=== PATIENT | male | born 1990 | race Caucasian/White ===

== ENCOUNTER 2018-08-04 21:07 | Emergency (ER) | payer SELFPAY ==
[~2018-08-04] VITALS: Ht 172.7 cm; Wt 83.9 kg
[~2018-08-04 21:07] MED LIST: AGM875T PO; HYDR-757 PO
--- OUTSIDE RECORDS SUMMARY | 2018-08-04 21:37 | XMS REPORT | Continuity of Care Document ---
Author Author [facility] Address Unknown Phone Unavailable Allergies Active Description Code Type Severity Reaction Onset Reported/Identified Relationship to Patient Clinical Status Yes NO KNOWN DRUG ALLERGIES [id number] Drug Allergy N/A N/A 08/26/2015 Medications There is no data. Problems Date Dx Coded Attending Type Code Diagnosis Diagnosed By 11/26/2007 CHANDNI ABERNATHY PHD 311 MO DEPRESSIVE DISORDER NOS 11/26/2007 CONNIE BREWER APRN 311 MO DEPRESSIVE DISORDER NOS 11/26/2007 CONNIE BREWER APRN 311 MO DEPRESSIVE DISORDER NOS 12/10/2007 CHANDNI ABERNATHY PHD 313.81 CD OPPOSITIONAL DEFIANT 12/10/2007 CONNIE BREWER APRN 313.81 CD OPPOSITIONAL DEFIANT 12/10/2007 CONNIE BREWER APRN 313.81 CD OPPOSITIONAL DEFIANT 09/11/2011 CHANDNI ABERNATHY PHD 300.02 AN GEN ANXIETY 09/11/2011 CONNIE BREWER APRN 300.02 AN GEN ANXIETY 09/11/2011 CONNIE BREWER APRN 300.02 AN GEN ANXIETY 01/13/2014 CONNIE BREWER APRN 296.90 MOOD DISORDER 01/13/2014 CONNIE BREWER APRN 296.90 MOOD DISORDER 08/11/2014 CONNIE BREWER APRN 523.31 AGGRESSIVE PERIODONTITIS LOCALIZED 08/26/2015 EUSEBIA BRAY MD D16.01 BENIGN NEOPLM OF SCAPULA AND LONG BONES OF RIGHT U 08/26/2015 EUSEBIA BRAY MD M25.512 PAIN IN LEFT SHOULDER 08/26/2015 EUSEBIA BRAY MD M25.551 PAIN IN RIGHT HIP 12/30/2015 GREY LESTER MD D16.01 BENIGN NEOPLM OF SCAPULA AND LONG BONES OF RIGHT U Procedures There is no data. Results There is no data. Encounters ACCT No. Visit Date/Time Discharge Status Pt. Type Provider Facility Loc./Unit Complaint [id number] 08/11/2014 09:21:00 08/11/2014 23:59:59 CLS Outpatient CONNIE BREWER APRN [facility] [id number] 01/13/2014 09:00:00 01/13/2014 23:59:59 CLS Outpatient CONNIE BREWER APRN [id number] 09/11/2011 13:49:00 09/11/2011 23:59:59 CLS Outpatient JOSEMANUEL BURNS, CHANDNI Medina 11/29/09 10/18/2017 08:37:22 10/18/2017 23:59:59 CLS Outpatient [id number] 12/30/2015 13:46:00 12/30/2015 23:59:00 DIS HECTOR LESTER MD, [facility] IC [id number] 08/26/2015 14:05:00 08/26/2015 15:53:00 DIS CELESTINO BRAY MD, [facility] ED [id number] 08/30/2015 07:44:23 08/30/2015 07:44:23 DIS Outpatient [id number] 08/26/2015 15:24:34 08/26/2015 15:24:34 DIS Outpatient [id number] 08/26/2015 15:24:31 08/26/2015 15:24:31 DIS Outpatient [id number] 08/26/2015 15:23:22 08/26/2015 15:23:22 DIS Outpatient [id number] 08/26/2015 14:04:00 08/26/2015 23:59:59 CLS [facility] ED [id number] 06/16/2013 17:48:00 06/16/2013 18:47:00 DIS Emergency
--- OUTSIDE RECORDS SUMMARY | 2018-08-04 21:37 | XMS REPORT | Continuity Of Care Document ---
Author Author [facility] Organization [facility] Address [address] [place] [address] Phone Care Team Providers Care Power Reactor Supervisor Name Role Phone ASA CLARK, EUSEBIA Batista AT NON STAFF, PROVIDER Unavailable Unavailable Results Results No results recorded. Allergies and Adverse Reactions Allergies and Adverse Reactions Patient Unit Number: [id number] Agent Type Reaction Severity Status NO KNOWN DRUG ALLERGIES Drug Allergy Unknown Unknown Active Problem List Problem List Visit/Account #[id number] (August 26, 2015 2:05pm - August 26, 2015 3:53pm) Acute Problems: Code/Condition Comments Documented Start Date Documented Resolved Date Code (s) Osteochondroma of humerus ICD10: D16.00 Osteochondroma of humerus ICD9: 213.4 Osteochondroma of humerus SNOMED: 25475652 Osteochondroma of humerus Plan of Care Plan Of Care Visit/Account #[id number] (August 26, 2015 2:05pm - August 26, 2015 3:53pm) Patient Instructions Followup with next week. Call office tomorrow for appointment Take pain medications as prescribed. Rest, ice to the area of pain and use shoulder sling for comfort. Return to the emergency room if symptoms worsens or has any concern. Vital Signs Vital Signs Visit/Account #[id number] (August 26, 2015 2:05pm - August 26, 2015 3:53pm) Sign First Result Last Result Code(s) Temperature in Fahrenheit Temperature (Fahrenheit): 98.8 [degF] On August 26, 2015 2:05pm Temperature (Fahrenheit): 98.1 [degF] On August 26, 2015 3:52pm 8310-5 Body Temperature Weight in Kilograms Weight (Kilograms): 93.2 kg On August 26, 2015 2:05pm 3141-9 Weight Measured 03415-6 Body weight measured in kilograms Functional Status Functional and Cognitive Status No Functional Status Data Medications Inpatient/Ordered Medications - Medications administered during hospital visit Visit/Account #[id number] (August 26, 2015 2:05pm - August 26, 2015 3:53pm) Medication Route Sig/Schedule Precondition/Indication Comments/Instructions Codes Solu-MEDROL INJ(MethylPREDNISolone SOD SUCC) 125 MG/2 ML INJECTION Dose: 2 ML INTRAMUSC NOW Methylprednisolone 62.5 MG/ML Injectable Solution [Solu-Medrol] (RxNorm): 132489 Solu-MEDROL INJ (MethylPREDNISolone SOD SUCC) NDC: 99561647058 TORADOL INJ(KETOROLAC TROMETHAMINE) 60 MG/2 ML VIAL Dose: 2 ML INTRAMUSC NOW 2 ML Ketorolac Tromethamine 30 MG/ML Injection (RxNorm): 5735754 TORADOL INJ (KETOROLAC TROMETHAMINE) NDC: 90072563820 Discharge Medications - Medications that patient should continue to take. Review with physician Visit/Account #[id number] (August 26, 2015 2:05pm - August 26, 2015 3:53pm) Medication Route Sig/Schedule Precondition/Indication Comments/Instructions Codes NORCO 5-325 TABLET(HYDROcodone BIT/ACETAMINOPHEN) 1 TAB TABLET Dose: 1 TAB ORAL EVERY 4 HOURS PAIN Rx Instructions: 1-2 TAB Acetaminophen 325 MG / Hydrocodone Bitartrate 5 MG Oral Tablet (RxNorm): 230423 NORCO 5-325 TABLET (HYDROcodone BIT/ACETAMINOPHEN) NDC: 97333981941 Flexeril(CYCLOBENZAPRINE HCL) 10 MG TAB Dose: 1 TAB ORAL TWICE A DAY SPASM Cyclobenzaprine hydrochloride 10 MG Oral Tablet (RxNorm): 621064 Flexeril (CYCLOBENZAPRINE HCL) NDC: 06055673581 History Of Encounters Encounters Visit/Account #[id number] (August 26, 2015 2:05pm - August 26, 2015 3:53pm) Account Status Physican Of Record Reason For Visit Visit Diagnosis Start Date/Time Stop Date/Time CELESTINO BRAY MD SHOULDER PAIN M25.512: PAIN IN LEFT SHOULDER ICD10 Aug 26, 2015 2:05pm Aug 26, 2015 3:53pm History of Procedures Procedure List No procedures recorded. Discharge Instructions Discharge Instructions Visit/Account #[id number] (August 26, 2015 2:05pm - August 26, 2015 3:53pm) DISCHARGE INSTRUCTIONS Physician Documentation Social History Social History No Social History Data. Immunizations Immunizations Patient Unit Number: [id number] Immunizations No immunizations recorded.
--- OUTSIDE RECORDS SUMMARY | 2018-08-04 21:37 | XMS REPORT ---
Author Author Migration, Doctor Organization [facility] Address Unknown Phone Unavailable Care Team Providers Care Negative Notcher Name Role Phone Migration, Doctor Unavailable Unavailable PROBLEMS Type Condition ICD9-CM Code PSB06-RX Code Onset Dates Condition Status SNOMED Code Problem Generalized anxiety disorder 300.02 Active 46874037 Problem Unspecified episodic mood disorder 296.90 Active [id number] ALLERGIES No Information ENCOUNTERS Encounter Location Date Diagnosis [facility] [id number] [place] [phone] Nov, Dental examination V72.2 [facility] [place] [id number] [place] [phone] September, [facility] [address], [place] [phone] September, Otitis externa of right ear 380.10 ; Mood disorder 296.90 and Restless leg 333.94 [facility] [place] [address] [place] [phone] September, Unspecified episodic mood disorder 296.90 [facility] [place] [id number] [place] [address] Aug, [facility] [place] [id number] [place] [address] Aug, [facility] [place] [id number] [place] [address] Jul, [facility] [place] [id number] [place] [address] Jul, [facility] [place] [id number] [place] [address] Jan, [facility] [address], [place] [phone] Jan, [facility] [place] [id number] [place] [phone] Dec, [facility] [place] [id number] [address] Dec, [facility] [place] [id number] [place] [address] Dec, [facility] [place] [id number] [place] [address] Nov, [facility] [place] [id number] [place] [address] Oct, [facility] [place] [id number] [place] [address] September, [facility] [place] [id number] [place] [address] Mar, [facility] [place] [id number] [place] [address] Feb, IMMUNIZATIONS No Known Immunizations SOCIAL HISTORY Never Assessed REASON FOR VISIT EMR-[facility] PLAN OF CARE VITAL SIGNS MEDICATIONS Medication Instructions Dosage Frequency Start Date End Date Duration Status trazodone 50 mg take 1 tablets by Oral route 1 time per day after meals Jul, Active RESULTS No Results PROCEDURES No Known procedures INSTRUCTIONS MEDICATIONS ADMINISTERED No Known Medications
--- OUTSIDE RECORDS SUMMARY | 2018-08-04 21:37 | XMS REPORT ---
Author Author [facility] Organization [employer] Address Unknown Phone Unavailable Care Team Providers Care Business Banking Representative Name Role Phone CHECO BOWEN CP Unavailable Allergies No Known Allergies Problems Problem Type Condition ICD-9 Code Onset Dates Condition Status Problem Unspecified episodic mood disorder 296.90 Active Assessment Dental examination V72.2 Active Problem Generalized anxiety disorder 300.02 Active Medications No Known Medications Procedures Procedure Coding System Code Date INTRAORL-PERIAPICAL 1 FILM 41263 CPT-4 D0220 November 25, 2014 BITEWING - SINGLE FILM CPT-4 D0270 November 25, 2014 LTD ORAL EVALUATION - PROBLEM FOCUS CPT-4 D0140 November 25, 2014 Results No Known Results Summary Purpose [employer] Submission
[2018-08-04] MEDS ORDERED: RX-MUPIROCIN (BACTROBAN) 2% OINT 22 GM TUBE TOP STA (22:10)
[2018-08-04] MEDS ORDERED: RX-TRIMETH/SULFA. 160-800 MG (BACTRIM DS) TAB PPK#2 PO STA (22:10)
[2018-08-04] MEDS ORDERED: TETANUS,DIPTH,PERTUSS P/F (BOOSTRIX) 0.5 ML VIAL IM ONE (22:15)
[2018-08-04] MEDS ORDERED: ACETAMINOPHEN 325 MG TABLET PO ONE (22:15)
[2018-08-04] MEDS ORDERED: SULF1TAB35 PO (22:33)
--- NOTE | 2018-08-04 22:33 | ED Lower Extremity ---
General Chief Complaint: Lower Extremity Stated Complaint: R FOOT POSS TOE INFECTION Nursing Triage Note: PT PRESENTS WITH AN AREA OF CONCERN ON THE RIGHT GREAT TOE THAT ONSET YESTERDAY WITH REDNESS AROUND A SCRATCH. AREA IS REDDISH PURPLE AND VISIBLY RAISED WITH SWELLING PRESENT TODAY. Nursing Sepsis Screen: Possible Sepsis Risk History of Present Illness Date Seen by Provider: Aug 04, 2018 Time Seen by Provider: 19:55 Initial Comments 28-year-old male reports sustaining multiple superficial lacerations to his right great toe approximately one week ago on tin. He is unsure of his last tetanus vaccine. He recently moved back to [place], [place], and does not have a healthcare provider. He denies history of MRSA. Reports purulent drainage from the right great toe. Onset: last week Pain/Injury Location: right 1st toe Method of Injury: incised Modifying Factors: Improves With Rest Allergies and Home Medications Allergies Coded Allergies: No Known Drug Allergies (Unverified Allergy, Mild, 11/23/08) Home Medications Amoxicillin/Clavulanate K 875 Mg Tab, 1 TAB PO BID Prescribed by: OLI SALINAS on 06/16/13 183 Hydrocodone Bit/Acetaminophen 1 Each Tablet, 1 EA PO Q6H PRN for MILD PAIN Prescribed by: OLI SALINAS on 06/16/13 183 Sulfamethoxazole/Trimethoprim 1 Each Tablet, 1 EACH PO BID Prescribed by: VERONIQUE SYLVESTER on 08/04/183 Patient Home Medication List Home Medication List Reviewed: Yes Review of Systems Constitutional: no symptoms reported, see HPI Skin: see HPI, other (abscess right great toe) All Other Systems Reviewed Negative Unless Noted: Yes Past Ondtctd-Aikqqa-Gbsfnh Hx Past Med/Social Hx: Reviewed Nursing Past Med/Soc Hx Patient Social History Recent Foreign Travel: No Contact w/Someone Who Travel: No Recent Infectious Disease Expo: No Past Medical History Reproductive Disorders: No Sexually Transmitted Disease: No Physical Exam Vital Signs Vital Signs - First Documented 08/04/18 21:15 Temp 98.8 Pulse 108 Resp 22 B/P (MAP) 125/90 (102) Pulse Ox 97 O2 Delivery Room Air Capillary Refill : Less Than 3 Seconds Height, Weight, BMI Height: 5'8" Weight: 185lbs. oz. 83.017077iq; 25.09 BMI Method:Stated General Appearance: WD/WN, no apparent distress Cardiovascular: normal peripheral pulses, regular rate, rhythm Respiratory: chest non-tender, lungs clear, normal breath sounds Feet: right foot infection (right great toe at IP joint), right foot limited range of motion, right foot pain, right foot soft tissue tenderness, right foot swelling, right foot other (mild fluctuance and erythema.) Neurologic/Psychiatric: no motor/sensory deficits, alert, normal mood/affect, oriented x 3 Skin: normal color, warm/dry Progress/Results/Core Measures Results/Orders My Orders Orders - VERONIQUE SYLVESTERP Foot, Right, 3 View (08/04/18 21:24) Acetaminophen Tablet/Caplet (Tylenol T (08/04/18 22:15) Dipht,Pertuss(Acell),Tet Adult (Boostrix (08/04/18 22:15) Rx-Mupirocin 2% Oint (Rx-Bactroban) (08/04/18 22:10) Rx-Trimeth/Sulfameth Ds Tab (Rx-Bactrim/ (08/04/18 22:10) Wound Culture (08/04/18 22:10) Medications Given in ED Current Medications Medications Dose Ordered Sig/Kenny Route Start Time Stop Time Status Last Admin Dose Admin Acetaminophen 650 mg ONCE ONCE PO 08/04/18 22:15 08/04/18 22:16 DC 08/04/18 22:51 650 MG Vital Signs/I&O 08/04/18 21:15 Temp 98.8 Pulse 108 Resp 22 B/P (MAP) 125/90 (102) Pulse Ox 97 O2 Delivery Room Air Blood Pressure Mean: 102 Progress Progress Note : Time: 19:55 Progress Note Patient seen and evaluated, will give Tylenol and tetanus vaccine. We'll obtain x-ray of the right foot. 2220 the skin on the right great toe was prepped with Betadine, using sterile technique a 22-gauge needle was used to make a puncture incision, small amount of purulent drainage was expressed. Culture was obtained. Patient tolerated procedure well. Bactroban ointment and sterile dressing applied. Instructions and return precautions reviewed with the patient. Diagnostic Imaging Diagonstic Imaging: Xray Plain Films/CT/US/NM/MRI: other (right foot) Comments No acute findings, no fractures or dislocations. Will be over read by radiology tomorrow. Departure Impression Primary Impression: Abscess of great toe, right Disposition: 01 HOME, SELF-CARE Condition: Improved Departure-Patient Inst. Decision time for Depature: 22:30 Referrals: NO,LOCAL PHYSICIAN (PCP/Family) Primary Care Physician Patient Instructions: Abscess Incision and Drainage (DC) Add. Discharge Instructions: Clean right great toe with peroxide 3 times a day and apply triple antibiotic ointment with dressing or Band-Aid. Keep pressure off the right great toe from shoe wear. Elevate for 20 minutes every 2 hours. Take antibiotics as prescribed. You may take Tylenol 650 mg alternating with ibuprofen 600 mg every 4 hours for pain or fever. Establish care with [facility], follow up there if symptoms are not improving or worsen. Return to emergency department for increased pain, fever greater than 101 not relieved by Tylenol or ibuprofen, or new urgent health care needs. All discharge instructions reviewed with patient and/or family. Voiced understanding. Scripts Sulfamethoxazole/Trimethoprim (Bactrim Ds Tablet) 1 Each Tablet 1 EACH PO BID, #14 TAB 0 Refills Prov: VERONIQUE SYLVESTER 08/04/18 VERONIQUE SYLVESTER Aug 04, 2018 22:33
[2018-08-04 23:17] VITALS: BP 120/83
--- NOTE | 2018-08-05 07:23 | Diagnostic Imaging Report ---
INDICATION: Discoloration and pain at the great toe. No priors. FINDINGS: No soft tissue gas is found. There are lucencies and cystic changes involving the middle and distal phalanges of the toe. Terminal tuft nonacute. The articular surfaces nonacute. There are arthritic changes to the MTP and interphalangeal joint. No soft tissue calcifications. IMPRESSION: Cystic changes to the phalanges of the first toe with no soft tissue calcification, fracture or opaque foreign body. Dictated by: Dictated on workstation # [id number]
== END 2018-08-04 23:17 | disposition home or self-care (01) ==
LOC: EDUNIT# 21:07 → ER 21:08
DX: L02.611 Cutaneous abscess of right foot (principal); Z23 Encounter for immunization
CPT/HCPCS: 73630; 87070; 87077; 87186; 87205; 90471; 90715